=== PATIENT | female | born 1995 | race Two or more races ===

== ENCOUNTER 2018-02-26 06:46 | Outpatient (CLI) | payer MEDICAID | END 2018-02-26 06:47 | disposition home or self-care (01) | LOC: BICULT 06:46 | PROVIDERS: ATTEND Nurse Practitioner | DX: R10.2 Pelvic and perineal pain (principal); N83.201 Unspecified ovarian cyst, right side | CPT/HCPCS: 76856 ==

== ENCOUNTER 2021-05-12 13:47 | Outpatient (CLI) | payer OTHER | END 2021-05-12 13:48 | disposition home or self-care (01) | LOC: DTY/OP 13:47 | PROVIDERS: ATTEND Surgery | DX: E66.01 Morbid (severe) obesity due to excess calories (principal); Z68.41 Body mass index [BMI] 40.0-44.9, adult | CPT/HCPCS: 97802 ==

== ENCOUNTER 2021-06-07 14:48 | Outpatient (CLI) | payer OTHER | END 2021-06-07 14:49 | disposition home or self-care (01) | LOC: DTY/OP 14:48 | PROVIDERS: ATTEND Surgery | DX: E66.01 Morbid (severe) obesity due to excess calories (principal); Z68.41 Body mass index [BMI] 40.0-44.9, adult | CPT/HCPCS: 97802 ==

== ENCOUNTER 2021-07-05 15:14 | Outpatient (CLI) | payer OTHER | END 2021-07-05 15:15 | disposition home or self-care (01) | LOC: DTY/OP 15:14 | PROVIDERS: ATTEND Surgery | DX: E66.01 Morbid (severe) obesity due to excess calories (principal) | CPT/HCPCS: 97802 ==

== ENCOUNTER 2021-08-03 07:42 | Outpatient (CLI) | payer OTHER | END 2021-08-03 07:43 | disposition home or self-care (01) | LOC: DTY/OP 07:42 | PROVIDERS: ATTEND Surgery | DX: E66.01 Morbid (severe) obesity due to excess calories (principal) | CPT/HCPCS: 97802 ==

== ENCOUNTER 2021-09-02 15:04 | Outpatient (CLI) | payer OTHER | END 2021-09-02 15:05 | disposition home or self-care (01) | LOC: DTY/OP 15:04 | PROVIDERS: ATTEND Surgery | DX: E66.01 Morbid (severe) obesity due to excess calories (principal); Z68.41 Body mass index [BMI] 40.0-44.9, adult | CPT/HCPCS: 97802 ==

== ENCOUNTER 2021-11-26 11:32 | Outpatient (CLI) | payer OTHER ==
[2021-11-26 12:20] LABS: #Eosinphils 0.3 10x3/uL (0.0-0.5); #Monocytes 0.4 10x3/uL (0.0-1.1); %Basophils 0.5 % (0.0-2.0); %Eosinophils 3.5 % (0.0-6.0); %Lymphocytes 23.8 % (18.0-47.0); %Monocytes 4.8 % (0.0-10.0); Hemoglobin 11.7 g/dL (12.0-15.5); Mean Corpuscular HGB CONC 31.2 g/dL (32.0-36.0); Mean Corpuscular Hemoglobin 27.6 pg (27.0-33.0); Mean Corpuscular Volume 88.4 fl (81.6-98.3); Mean Platelet Volume 11.4 fl (7.4-10.4); Platelet Count 289 10x3/uL (150-450); RBC Distribution Width 14.1 % (11.5-14.5); Red Blood Cell (RBC) Count 4.24 10x6/uL (3.90-5.03); White Blood Cell (WBC) Count 7.4 10x3/uL (3.5-10.5)
[2021-11-26 12:36] LABS: BHCG - Serum Negative (NEGATIVE); Pregs Control Background? CLEAR/WHITE (CLR/WHITE); Pregs Control Bar Appear? YES (CONTROL BAR)
[2021-11-26 12:40] LABS: ALT (SGPT) 37 U/L (8-55); AST (SGOT) 20 U/L (5-34); Albumin 4.2 g/dL (3.5-5.0); Alkaline Phosphatase 90 U/L (40-110); Anion Gap 11 mmol/L (10-20); BUN (Urea Nitrogen) 9 mg/dL (7.0-18.7); Bilirubin, Total 0.6 mg/dL (0.2-1.2); Calc. Creatinine Clearance 0 mL/min (70-130); Carbon Dioxide 25 mmol/L (22-29); Chloride 105 mmol/L (98-107); Globulin 2.7 g/dL (2.4-3.5); Glucose 87 mg/dL (70-105); Potassium 4.3 mmol/L (3.5-5.1); Protein, Total 6.9 g/dL (6.0-8.3); Sodium 137 mmol/L (136-145)
[2021-11-26 14:15] LABS: Hemoglobin A1c 5.3 % (4.0-6.0)
[2021-11-27 17:22] LABS: SARS-CoV-2 PCR by NAA Not Detected (NotDetected)
== END 2021-11-26 11:33 | disposition home or self-care (01) ==
LOC: LABBT 11:32
PROVIDERS: ATTEND Surgery
DX: Z01.818 Encounter for other preprocedural examination (principal); E66.01 Morbid (severe) obesity due to excess calories; Z20.822 Contact with and (suspected) exposure to COVID-19
CPT/HCPCS: 71045; 80053; 83036; 84703; 85025; U0003; U0005